=== PATIENT | female | born 1980 | race Caucasian/White ===

== ENCOUNTER → 2021-06-15 02:41 | Outpatient (CLI) | payer OTHER, SELFPAY ==
[2021-06-15 12:24] LABS: SARS-CoV-2 RNA PCR Negative
== END ==
PROVIDERS: Visit Provider Obstetrics & Gynecology Gynecology
DX: Z01.812 Encounter for preprocedural laboratory examination (principal); Z20.822 Contact with and (suspected) exposure to COVID-19
CPT/HCPCS: C9803; U0003; U0005

== ENCOUNTER 2021-06-18 01:56 | Day surgery (SDC) | payer OTHER, SELFPAY ==
[2021-06-11 09:20] VITALS: BMI 25.7
--- NOTE | 2021-06-11 09:30 | PC.NURSE ---
Report to the Outpatient Waiting Room, entrance under the green pavilion located off [facility], at time 0845 on date 06/18/21. OR Time: 1045. - You and your visitor will be asked a series of questions to screen for COVID 19 for your protection. - A mask is required within the hospital. One visitor will be allowed to accompany the patient into the hospital. Patients visitor will be instructed to remain with patient at all times or leave the building. We will allow the visitor to come back to the postoperative area when patient is ready. Preoperative COVID Testing Requirements: COVID TEST 06/15 AT 0915 No COVID Test needed if: (proof is required; if not received patient will have Rapid Test prior to entry) - Patient has received COVID Vaccine at least 14 days prior to procedure date or - Patient has positive COVID test result within last 90 days of surgery date. COVID Test needed if above criteria is not met If not COVID vaccinated a COVID test must be conducted within 72 hours of surgery and patient is asked to isolate self from time of testing until procedure. You will go to the [facility] [facility] for your COVID testing. The [employer] [facility] site is located at the corner of [address] [facility]. You will only be called if COVID results are positive and your surgeon may reschedule your elective surgery date. Patients may have clear liquids (water, carbonated beverages, clear teas, apple juice) until 3 hours prior to surgery with a maximum of 20 ounces. - No food from midnight until time of surgery Take the following medications with a SIP of water the morning of surgery: VENLAFAXINE, BUPROPION Medications to discontinue per physician: VITAMINS/SUPPLEMENTS Date to take last dose: 06/14/21 Please no make-up, nail estonian, hairspray, perfume, deodorant, or body powder the day of surgery. No jewelry (including any body piercings) or valuables the day of surgery, leave them at home. Please take a shower or bath the night before, or the morning of, surgery with an antibacterial soap. Wear comfortable, loose fitting clothing. - Jewelry must be removed prior to entering the operating room. Rings and piercings that are not removed may be cut off. - The hospital will not accept responsibility for valuables. - Please leave all valuables, including medications, at home the day of surgery. If you are going home after surgery, a licensed gravel truck driver must drive you home. - NO public transportation without another adult. - We recommend that an adult stay with you for 24 hours following discharge. - We also recommend that you do not drive, make important decision, drink alcoholic beverages, or take any drugs that were not prescribed by your health care provider for at least 24 hours after your discharge time. Follow any additional instructions given to you from your surgeon. Telephone instructions given to RAMANA DONOHUE and asked if any additional questions and then verbalized understanding. Patient advised to call surgeon office or pre surgery nurse liaison [phone] if any additional questions.
[2021-06-18] VITALS (13 sets, daily range): BP systolic 97–132; BP diastolic 60–93; PULSE 79–100; RESP 12–20; TEMP 36.1–36.6; O2SAT 93–100
--- NOTE | 2021-06-18 07:49 | WPDHPUPDATE1 ---
History and Physical Update Update Date/Time: 06/18/21 07:49 History and Physical has been reviewed, including an updated exam of the patient. There are NO changes in the patient's condition. Risks, benefits, and alternatives have been discussed and questions answered. Patient agrees to proceed with procedure.
--- NOTE | 2021-06-18 07:49 | PM.HPGS ---
History of Present Illness History of Present Illness Consent: Risks, benefits, and alternatives have been discussed and questions answered. Patient agrees to proceed with procedure. Chief complaint: elective sterilization Narrative: Felecia Hendrix is a 40 year old female who has completed her childbearing and wishes to proceed with permanent sterilization with laparoscopic tubal ligation. Procedure reviewed. Risks of infection, bleeding, injury to internal organs, tubal failure, increased ectopic if tubal fails, and general anesthesia were reviewed with patient. Patient voices understanding and agrees to proceed. Review of Systems Review of Systems: not repeated day of surgery; patient states no changes in status FOR[facility]LY [facility] Past Medical History Medical History (Updated 06/18/21 @ 07:51 by Janette Squires MD) Depression (normal spontaneous vaginal delivery) x2 Surgical History Surgical History (Updated 06/18/21 @ 07:51 by Janette Squires MD) H/O right inguinal hernia repair Family History Family History (System 12/03/19 @ 09:42 by Courtney Young) Mother Hypertension Sibling Patient's sister is in good health Social History Social History (System 12/03/19 @ 09:42 by Courtney Young) Smoking packs per day: 0.5 Smoking cigarettes per day: 10.0 Years smoked: 15 Smoking pack-years: 7.50 Smoking status: Former smoker Tobacco type: cigarettes Smoking end date: 10/22/12 Alcohol intake: former Substance use: current Substance use type: marijuana Living arrangements: with family Spiritual care concerns: No Meds Home Medications and Allergies Home Medications Medication Instructions Recorded Confirmed Type bupropion HCl 300 mg PO QAM 06/11/21 06/11/21 History multivitamin 1 tablet PO DAILY 06/11/21 06/11/21 History venlafaxine 150 mg PO DAILY 06/11/21 06/11/21 History Allergies Allergy/AdvReac Type Severity Reaction Status Date / Time cefuroxime Allergy Mild RASH Unverified 06/11/21 09:18 Exam Const: General: healthy appearing and alert Orientation/consciousness: patient oriented x3 Resp: Effort & Inspection: normal respiratory effort Auscultation: clear to auscultation bilaterally Cardio: Rate: regular rate Rhythm: regular rhythm GI: GI Palp: Yes Soft to palpation, No Tenderness to palpation present (GI) and No Palpable mass present : External Female Exam: normal external appearance Speculum Exam - Vagina: normal appearance of the vagina and normal vaginal discharge Speculum Exam - Cervix: normal appearance of the cervix Bimanual exam- vagina & uterus: uterine size normal and consistency normal Bimanual Exam- Adnexa, other: normal adnexae and No adnexal tenderness Neuro: General: patient oriented x3 Assessment and Plan Assessment and plan (1) Encounter for sterilization: Code(s): Z30.2 - Encounter for sterilization Status: Acute Assessment and Plan: Plan to proceed with laparoscopic tubal ligation with Falope rings
--- NOTE | 2021-06-18 08:04 | WPDANESEPPF ---
Anes - Initial Pre Proc Eval Procedure: Operation Date: 06/18/21 10:45 Proposed Procedures p Laparoscopic Bilateral Tubal Sterilization with Fallopian Rings - Janette Squires MD Date/Time: 06/18/21 08:04 Surgeon: Janette Squires MD Pre Op Diagnosis: elective sterilization Patient Data Age: 40 Gender: F Height: 1.6 m Weight: 65.77 kg Allergies Allergy/AdvReac Type Severity Reaction Status Date / Time cefuroxime Allergy Mild RASH Unverified 06/11/21 09:18 Home Medications Medication Instructions Recorded Confirmed Type bupropion HCl 300 mg PO QAM 06/11/21 06/11/21 History multivitamin 1 tablet PO DAILY 06/11/21 06/11/21 History venlafaxine 150 mg PO DAILY 06/11/21 06/11/21 History Patient hx anesthesia problems: none Family hx anesthesia problems: none Results Review: All pre-operative results and documents have been reviewed as part of the pre-operative evaluation. PMFSH Past Medical History Medical History (Updated 06/18/21 @ 08:04 by Nato Barroso MD) Anxiety Depression (normal spontaneous vaginal delivery) x2 Surgical History Surgical History (Updated 06/18/21 @ 07:51 by Janette Squires MD) H/O right inguinal hernia repair Family History Family History (System 12/03/19 @ 09:42 by Courtney Young) Mother Hypertension Sibling Patient's sister is in good health Social History Social History (System 12/03/19 @ 09:42 by Courtney Young) Smoking packs per day: 0.5 Smoking cigarettes per day: 10.0 Years smoked: 15 Smoking pack-years: 7.50 Smoking status: Former smoker Tobacco type: cigarettes Smoking end date: 10/22/12 Alcohol intake: former Substance use: current Substance use type: marijuana Living arrangements: with family Spiritual care concerns: No Anes - Eval Final PreProcedure Day of Procedure 06/18/21 08:04 Patient weight: normal Heart: regular rate and rhythm Lungs: clear to auscultation and normal air movement Airway: Mallampati scale class II Neurological: alert and oriented Last oral intake: >/= 8 hours ASA classification: II Emergent: no Anesthetic plan: proceed Anesthesia type and monitoring: general ETT Results Review: All pre-operative results and documents have been reviewed as part of the pre-operative evaluation. Informed Consent: The patient's anesthetic plan and its attendant risks and benefits were discussed with the patient/family/POA. Questions were solicited and answers provided to the satisfaction of the patient/family/POA.
[2021-06-18] MEDS: LACTATED RINGERS 1,000 ML 30 ML IV CONT ×2 (09:30→11:32)
[2021-06-18] MEDS: ONDANSETRON INJ 4 MG/2 ML VIAL IV PUSH ×2 (09:32→13:29)
[2021-06-18] MEDS: KETOROLAC 15 MG/ML VIAL (*BKC) IV PUSH (09:39)
[2021-06-18] MEDS: ACETAMINOPHEN 500 MG TABLET 1000 MG PO (09:40)
[2021-06-18] MEDS: KETOROLAC 30 MG/ML VIAL (*BKC) IV PUSH (11:17)
--- NOTE | 2021-06-18 11:19 | W.PM.PROC2 ---
Procedure Note - Detailed Date of Procedure 06/18/21 Pre-op Diagnosis elective sterilization Post-op Diagnosis Same Procedure Performed Laparoscopic bilateral tubal ligation with Falope rings Surgeon Janette Squires MD Anesthesia General Findings Uterus sounds to 7cm. There is a right subserosal fibroid at the right lateral aspect below the utero-ovarian ligament. Tubes and ovaries appeared grossly normal. Pelvis appears grossly normal. Description of Procedure The patient was taken to the operating room and placed under anesthesia in the dorsal lithotomy position. She is prepped and draped in the usual sterile fashion. Bladder was drained with a red rubber catheter. [place] speculum was placed in the vagina and the cervix grasped on the anterior lip with a tenaculum. The uterus is sounded to 7cm. The ROWENA manipulator was placed and other vaginal instruments are removed. Attention was then turned to the abdomen where a vertical skin incision was made with a scalpel at the base of the umbilicus. The abdomen is tented and the Veress needle placed. Water drop test is normal. Opening patient pressure is 7mmHg. Pneumoperitoneum was obtained to a patient pressure of 15mmHg. The Veress needle was then removed and the 5mm Optiview trocar is placed. Intra-abdominal placement is confirmed with the laparoscope. The 2nd incision was made 2cm above the symphysis pubis in the midline. The 8mm is placed under direct visualization. The blunt probe was used to bring the tubes into the visual field. The ring applicator was then placed through the lower port and the left tube grasped with the ring applicator. A good loop of tube was brought into the applicator and the ring was applied. The identical procedure was performed on the opposite side. Picture documentation is taken. All instruments are removed and the pneumoperitoneum was reduced. Skin incisions are closed using 4-0 nylon in a interrupted fashion. Vaginal instruments are removed. The patient was awakened from anesthesia and taken to recovery in stable condition. Sponge, needle, and instrument counts are correct per the OR staff. Estimated Blood Loss 5 Pathology None sent Complications No immediate complications Condition Stable Disposition PACU
[2021-06-18] MEDS: fentaNYL CITRATE INJ (*CRX) 100 MCG/2 ML VIAL 25 MCG IV PUSH ×7 (11:57→13:51)
[2021-06-18] MEDS: oxyCODONE HCL (*CRX) 5 MG TAB IR PO (12:55)
[2021-06-18] MEDS: SCOPOLAMINE 1.5 MG PATCH TRANSDERM (14:32)
== END 2021-06-18 15:30 | disposition home or self-care (01) ==
PROVIDERS: Visit Provider Obstetrics & Gynecology Gynecology
PROC: (CPT 58671; principal; 2021-06-18 10:45)
DX: Z30.2 Encounter for sterilization (principal); D25.2 Subserosal leiomyoma of uterus; F41.8 Other specified anxiety disorders; Z87.891 Personal history of nicotine dependence; F12.90 Cannabis use, unspecified, uncomplicated
CPT/HCPCS: 58671; A4264; A9270; C9803; J0330; J1100; J1170; J1885; J2250; J2405; J2704; J3010; J7120; U0003; U0005